=== PATIENT | female | born 1975 | race Caucasian/White ===

== ENCOUNTER 2019-10-09 08:38 | Emergency (ER) | payer OTHER ==
[~2019-10-09] VITALS: Ht 175.3 cm; Wt 65.8 kg
[2019-10-09 08:40] VITALS: BP 131/79
[2019-10-09] MEDS ORDERED: KETOROLAC TROMETHAMINE INJ 60 MG/2 ML VIAL IM ONE ×2 (09:00→09:05)
== END 2019-10-09 09:25 | disposition home or self-care (01) ==
LOC: ER 08:40
DX: M54.12 Radiculopathy, cervical region (principal); M62.838 Other muscle spasm
CPT/HCPCS: 96372; 99283; J1885

== ENCOUNTER 2025-09-16 06:55 | Emergency (ER) | payer OTHER | END 2025-09-16 08:06 | disposition left against medical advice (07) | LOC: ER 06:58 | DX: M25.551 Pain in right hip (principal); Z53.21 Procedure and treatment not carried out due to patient leaving prior to being seen by health care provider ==